=== PATIENT | female | born 1985 | race African-American/Black ===

== ENCOUNTER 2017-09-10 12:22 | Emergency (ER) | payer SELFPAY ==
[~2017-09-10] VITALS: Ht 154.9 cm; Wt 49.0 kg
[2017-09-10] MEDS ORDERED: SODIUM CHLORIDE 0.9% 1,000 ML IV ONE (18:30)
[2017-09-10 19:19] LABS: HEMATOCRIT. 38.1 % (36.0-48.0); HEMOGLOBIN. 12.1 g/dL (12.0-16.0); MEAN CORPUSCULAR HEMOGLOBIN 27.6 pg (28.0-32.0); PLATELET 270 x1000/uL (130-400); RED BLOOD CELL COUNT 4.38 mill/uL (4.2-5.4); RED CELL DISTRIBUTION WIDTH 13.1 % (11.6-14.6)
[2017-09-10 19:24] LABS: CHLORIDE 97 mEq/L (98-107)
[2017-09-10 19:29] LABS: CARBON DIOXIDE 28 mEq/L (21-32)
[2017-09-10 20:02] LABS: ATYPICAL LYMPHOCYTES 2; PLATELET ESTIMATE NORMAL
[2017-09-10 20:13] LABS: CLARITY URINE CLEAR (CLEAR); COLOR URINE YELLOW (YELLOW); KETONES URINE 2+ (NEGATIVE); LEUKOCYTE ESTERASE URINE 1+ (NEGATIVE); NITRITE URINE NEGATIVE (NEGATIVE); OCCULT BLOOD URINE TRACE (NEGATIVE); PH URINE 7.5 (4.5-8.0); PROTEIN URINE NEGATIVE (NEGATIVE); SPECIFIC GRAVITY URINE 1.022 (1.005-1.030); UROBILINOGEN URINE 0.2 E.U./dL (0.2-1.0)
[2017-09-10] MEDS ORDERED: KETOROLAC 30MG/ML VIAL IV ONE (21:45)
[2017-09-10 22:03] VITALS: BP 115/67
== END 2017-09-10 22:10 | disposition home or self-care (01) ==
LOC: EDBD 12:22 → ER 14:39
DX: E11.9 Type 2 diabetes mellitus without complications (principal); N39.0 Urinary tract infection, site not specified; R03.0 Elevated blood-pressure reading, without diagnosis of hypertension; Z91.14 Patient's other noncompliance with medication regimen; Z79.84 Long term (current) use of oral hypoglycemic drugs
CPT/HCPCS: 36415; 80048; 81001; 82010; 82962; 85007; 85027; 96361; 96374; 99284; J1885; J7030; Z7610